=== PATIENT | male | born 1990 | race Caucasian/White ===

== ENCOUNTER 2016-12-12 14:32 | Emergency (ER) | payer MEDICAID ==
[~2016-12-12] VITALS: Ht 182.9 cm; Wt 69.2 kg
[2016-12-12] MEDS ORDERED: HYDROcodone/APAP 5/325 TABLET ONE (15:19)
[2016-12-12] MEDS ORDERED: HYDROcodone/APAP 5/325 TABLET PO ONE (15:30)
[2016-12-12 15:39] VITALS: BP 127/82
== END 2016-12-12 15:43 | disposition home or self-care (01) ==
LOC: ED 15:00
DX: K08.89 Other specified disorders of teeth and supporting structures (principal); F17.210 Nicotine dependence, cigarettes, uncomplicated
CPT/HCPCS: 99283